=== PATIENT | female | born 1995 | race Caucasian/White ===

== ENCOUNTER 2021-10-19 02:38 | Emergency (ER) | payer OTHER ==
[~2021-10-19] VITALS: Ht 152.4 cm; Wt 61.2 kg
[~2021-10-19 02:38] MED LIST: INTESTINEX1 CA1 PO; ZANTAC150 MG PO
[2021-10-19] MEDS ORDERED: TUSNEL LIQUID178 ML PO (05:23)
[2021-10-19] MEDS ORDERED: ZYRTEC10 M3 PO (05:23)
[2021-10-19] MEDS ORDERED: ZITHROMAX500 MG PO (05:23)
== END 2021-10-19 05:33 | disposition home or self-care (01) ==
LOC: ER 02:38
DX: J06.9 Acute upper respiratory infection, unspecified (principal)